=== PATIENT | female | born 1975 | race Caucasian/White ===

== ENCOUNTER 2022-03-10 10:40 | Emergency (ER) | payer BC, MEDICAID ==
[~2022-03-10] VITALS: Ht 157.5 cm; Wt 59.0 kg
[2022-03-10 11:12] VITALS: BP 104/68
--- NOTE | 2022-03-10 11:13 | NUR ---
PT AMBULATED TO LOBBY
--- NOTE | 2022-03-10 11:15 | NUR ---
47/F WALKED IN C/O B/L PELVIC PAIN ONSET 03/08/22. PT WAS SEEN AT [facility] AND WAS REFERRED HERE AFTER NEGATIVE URINE TEST. PT DENIES HEMATURIA, DYSURIA, OR ODOR. PT DENIES NVD. DENIES . AAO4, AMBULATORY, VITALS STABLE, URINE COLLECTED AND SENT TO BIN PMH: RETROVERTED OVARIES. LMP: TODAY
[2022-03-10 13:07] LABS: BASOPHILS # (AUTO) 0.1 K/uL (0.00-0.22); BASOPHILS % (AUTO) 0.6 % (0.0-2.0); EOSINOPHILS # (AUTO) 0.1 K/uL (0-0.4); EOSINOPHILS % (AUTO) 0.5 % (0.0-4.0); HEMATOCRIT 37.3 % (36-48); HEMOGLOBIN 12.7 g/dL (12.0-16.0); LYMPHOCYTES # (AUTO) 1.6 K/uL (2.5-16.5); MEAN CORPUSCULAR HEMOGLOBIN 31 pg (27-31); MEAN CORPUSCULAR HGB CONC 34 g/dL (33-37); MEAN CORPUSCULAR VOLUME 90.3 fL (80-94); MONOCYTES # (AUTO) 1.4 K/uL (0.8-1.0); MONOCYTES % (AUTO) 8.9 % (1.7-9.3); NEUTROPHILS # (AUTO) 12.9 K/uL (1.8-7.7); PLATELET COUNT (AUTO) 504 K/uL (140-450); RED BLOOD CELL COUNT(AUTO) 4.13 MIL/uL (4.20-5.40); RED CELL DISTRIBUTION WIDTH 12.6 % (11.6-13.7); WHITE BLOOD COUNT (AUTO) 16.1 K/uL (4.8-10.8)
[2022-03-10 13:08] LABS: ALBUMIN 3.5 g/dL (3.4-5.0); ANION GAP 13.5 (8-16); CREATININE 0.6 mg/dL (0.6-1.3); POTASSIUM 4.5 mmol/L (3.5-5.1); TOTAL BILIRUBIN 0.7 mg/dL (0.0-1.0)
[2022-03-10 14:51] LABS: APPEARANCE,URINE CLEAR (CLEAR); BILIRUBIN,URINE NEGATIVE (NEGATIVE); BLOOD, URINE 2+ (NEGATIVE); COLOR,URINE YELLOW (YELLOW); LEUKOCYTE ESTERASE ,URINE NEGATIVE (NEGATIVE); NITRITE, URINE NEGATIVE (NEGATIVE); UGLUCOSE NEGATIVE (NEGATIVE)
[2022-03-10 15:06] LABS: OTHER CASTS, URINE None Seen /LPF (None Seen); WBC,URINE 0-5 /HPF (0-5)
[2022-03-10] MEDS ORDERED: KETOROLAC 30 MG/ML VIAL IVP ONE (15:35)
--- NOTE | 2022-03-10 16:00 | NUR ---
47YO FEMALE PT C/O STABBING 10/16 FREYA PELVIC PAIN X1WEEK. REPORTS FEVER OF 101.3 XYESTERDAY AND BURNING DYSURIA -BLOOD W/ MILD HESITANCY. STATES GOING TO URGENT CARE 2DAYS AGO FOR UTI SYMPTOMS AND GIVEN RX MACROBID . DENIES N/V/D, CHEST PAIN, SOB, FEVER OR CHILLS. PT AAOX4, HOB POSITIONED PER COMFORT. HX:DENIES NKA
[2022-03-10] MEDS ORDERED: MORPHINE SULFATE 4 MG/ML SYR IVP ONE (18:15)
--- NOTE | 2022-03-10 18:49 | NUR ---
Pt ambulated to chair/recliner E
[2022-03-10] MEDS ORDERED: IBUP-2213 PO (19:20)
[2022-03-10] MEDS ORDERED: ACET-8386 PO (19:20)
[2022-03-10 19:26] VITALS: BP 125/62
[2022-03-10] MEDS ORDERED: CEPH-588 PO (19:37)
== END 2022-03-10 19:26 | disposition home or self-care (01) ==
LOC: MED 10:40
DX: D25.9 Leiomyoma of uterus, unspecified (principal); N83.202 Unspecified ovarian cyst, left side; D72.829 Elevated white blood cell count, unspecified; Z98.890 Other specified postprocedural states
CPT/HCPCS: 36415; 74177; 76830; 80053; 81001; 81025; 85025; 87086; 87491; 93976; 96374; 96375; 99285; J1885; J2270; Q9967